=== PATIENT | male | born 1960 | race African-American/Black ===

== ENCOUNTER 2021-01-25 16:07 | Inpatient (IN) | payer OTHER ==
[2021-01-25] MEDS ORDERED: NICOTINE 10 MG CARTRIDGE (INHALER) IH PRN (18:22)
[2021-01-25] MEDS ORDERED: hydrOXYzine PAMOATE 25 MG CAPSULE (FP) PO PRN (18:22)
[2021-01-25] MEDS ORDERED: MENTHOL/PHENOL 1 EACH UD MM PRN (18:22)
[2021-01-25] MEDS ORDERED: ONDANSETRON *ODT* 4 MG TABLET SL PRN (18:22)
[2021-01-25] MEDS ORDERED: MAGNESIUM HYDROX 2400MG/30ML ORAL SUSPENSION 30 ML CUP PO PRN (18:22)
[2021-01-25] MEDS ORDERED: BISMUTH SUBSALICYLATE 524 MG/30 ML PO PRN (18:22)
[2021-01-25] MEDS ORDERED: guaiFENesin 200 MG/10 ML 10 ML UNIT-DOSE CUPS PO PRN (18:22)
[2021-01-25] MEDS ORDERED: ACETAMINOPHEN 325 MG TABLET (FP) PO PRN (18:22)
[2021-01-25] MEDS ORDERED: MAG HYDROX/AL HYDROX/SIMETH 30 ML UNIT-DOSE CUP PO PRN (18:22)
[2021-01-25] MEDS ORDERED: MAGNESIUM CITRATE 300 ML BOTTLE PO PRN (18:22)
[2021-01-25] MEDS ORDERED: diazePAM 5 MG TABLET PO PRN (18:24)
[2021-01-25] MEDS ORDERED: ALBUTEROL SO4 HFA INHALER IH PRN (18:53)
[2021-01-25 23:42] VITALS: BMI 26.9
[2021-01-25] MEDS: diazePAM 5 MG TABLET PO SCH (23:52)
[2021-01-25] MEDS: THIAMINE HCL 100 MG TABLET (FP) PO SCH (23:52)
[2021-01-25] MEDS: MELATONIN 5 MG TABLETS PO SCH (23:52)
[2021-01-26] MEDS ORDERED: diazePAM 5 MG TABLET ONE ×2 (06:26→10:29)
[2021-01-26] MEDS: diazePAM 5 MG TABLET PO SCH ×4 (06:28→22:13)
[2021-01-26] MEDS ORDERED: PNEUMOC 13-VAL CONJ-DIP CRM/PF 0.5 ML DISP.SYRIN IM ONE (10:00)
[2021-01-26] MEDS: PRENATAL VITAMINS W/ FOLIC ACID TABLET (FP) PO SCH (10:31)
[2021-01-26] MEDS ORDERED: ONDANSETRON *ODT* 4 MG TABLET ONE (11:02)
[2021-01-26] MEDS ORDERED: TRIMETHOBENZAMIDE HCL 200MG/2ML INJ IM PRN (11:35)
[2021-01-26] MEDS: NICOTINE 7 MG/24 HOURS TOPICAL PATCH TD SCH (12:44)
[2021-01-26] MEDS: ACETAMINOPHEN 325 MG TABLET (FP) PO PRN (15:40)
[2021-01-26] MEDS: METHOCARBAMOL 500 MG TABLET PO PRN (17:38)
[2021-01-26] MEDS: LISINOPRIL 20 MG TABLET PO SCH (21:14)
[2021-01-26] MEDS: THIAMINE HCL 100 MG TABLET (FP) PO SCH (22:13)
[2021-01-26] MEDS: MELATONIN 5 MG TABLETS PO SCH (22:13)
[2021-01-27] MEDS: diazePAM 5 MG TABLET PO SCH ×3 (06:01→22:22)
[2021-01-27] MEDS ORDERED: FLU VACC QS2021-22(6MOS UP)/PF 60 MCG/0.5 ML SYRINGE IM ONE (10:00)
[2021-01-27] MEDS: NICOTINE 7 MG/24 HOURS TOPICAL PATCH TD SCH (10:02)
[2021-01-27] MEDS: PRENATAL VITAMINS W/ FOLIC ACID TABLET (FP) PO SCH (10:02)
[2021-01-27] MEDS: LISINOPRIL 20 MG TABLET PO SCH (10:02)
[2021-01-27 10:32] LABS: HEMATOCRIT 47.6 % (35.4-49); MCH 30.6 pg (25.7-33.7); MCHC 33.6 g/dl (32.0-35.9); MEAN PLT VOLUME 9.2 fl (7.5-11.1); PLATELET COUNT 179 10^3/uL (134-434); RBC 5.23 M/mm3 (4.00-5.60); WHITE BLOOD COUNT 10.5 K/mm3 (4.0-10.0)
[2021-01-27 10:37] LABS: ALBUMIN 3.6 g/dl (3.4-5.0); BLOOD UREA NITROGEN 9.8 mg/dL (7-18)
[2021-01-27 10:40] LABS: CREATININE 0.9 mg/dL (0.55-1.3)
[2021-01-27 10:41] LABS: BILIRUBIN,TOTAL 1.2 mg/dL (0.2-1)
[2021-01-27 10:42] LABS: TOT PROT 7.6 g/dl (6.4-8.2)
[2021-01-27] MEDS: ACETAMINOPHEN 325 MG TABLET (FP) PO PRN (15:52)
[2021-01-27 15:55] LABS: HIV INTERPRETATION NEGATIVE (NEGATIVE)
[2021-01-27] MEDS: IBUPROFEN 400 MG TABLET (FP) PO PRN (20:23)
[2021-01-27] MEDS: METHOCARBAMOL 500 MG TABLET PO PRN (20:25)
[2021-01-27] MEDS: MELATONIN 5 MG TABLETS PO SCH (22:22)
[2021-01-27] MEDS: THIAMINE HCL 100 MG TABLET (FP) PO SCH (22:22)
[2021-01-28] MEDS: diazePAM 5 MG TABLET PO SCH ×2 (06:27→18:50)
[2021-01-28] MEDS: PRENATAL VITAMINS W/ FOLIC ACID TABLET (FP) PO SCH (10:18)
[2021-01-28] MEDS: NICOTINE 7 MG/24 HOURS TOPICAL PATCH TD SCH (10:18)
[2021-01-28] MEDS: LISINOPRIL 20 MG TABLET PO SCH (10:18)
[2021-01-28] MEDS ORDERED: SODIUM CHLORIDE NASAL SPRAY 44 ML BOTTLE NS PRN (11:03)
[2021-01-28] MEDS ORDERED: PENICILLIN G BENZATHINE 2,400,000 UNIT/4 ML PFS IM ONE (11:18)
[2021-01-28] MEDS: ACETAMINOPHEN 325 MG TABLET (FP) PO PRN (18:50)
[2021-01-28] MEDS ORDERED: LISINOPRIL 5 MG TABLET PO ONE (21:14)
[2021-01-28] MEDS: MELATONIN 5 MG TABLETS PO SCH (23:06)
[2021-01-28] MEDS: THIAMINE HCL 100 MG TABLET (FP) PO SCH (23:06)
[2021-01-29] MEDS ORDERED: diazePAM 5 MG TABLET PO ONE (06:00)
[2021-01-29] MEDS: IBUPROFEN 400 MG TABLET (FP) PO PRN (06:51)
[2021-01-29] MEDS: METHOCARBAMOL 500 MG TABLET PO PRN (06:52)
[2021-01-29 07:21] VITALS: BP 129/87; PULSE 16; TEMP 97
== END 2021-01-29 10:28 | disposition home or self-care (01) | DRG 897 ==
LOC: YASAS 16:07 → Y3N 01-26 10:26
PROVIDERS: ADMIT Allergy & Immunology; ATTEND Allergy & Immunology
PROC: HZ2ZZZZ Detoxification Services for Substance Abuse Treatment (ICD-10-PCS; principal; 2021-01-26)
DX: F10.230 Alcohol dependence with withdrawal, uncomplicated (principal); F14.20 Cocaine dependence, uncomplicated; F17.210 Nicotine dependence, cigarettes, uncomplicated; K29.00 Acute gastritis without bleeding; G89.29 Other chronic pain; M54.2 Cervicalgia; M54.50 Low back pain, unspecified; Z86.19 Personal history of other infectious and parasitic diseases; Z98.890 Other specified postprocedural states
CPT/HCPCS: 36415; 80053; 85027; 86593; 86780; 87389; 90670; 90686; C9803; G0008; G0009; Q0162; U0003; U0005

== ENCOUNTER 2021-10-26 13:48 | Inpatient (IN) | payer OTHER ==
[2021-10-26 14:27] VITALS: BMI 25.7
[2021-10-26] MEDS ORDERED: ACETAMINOPHEN 325 MG TABLET (FP) PO PRN (18:32)
[2021-10-26] MEDS ORDERED: IBUPROFEN 400 MG TABLET (FP) PO PRN (18:32)
[2021-10-26] MEDS ORDERED: MAGNESIUM HYDROX 2400MG/30ML ORAL SUSPENSION 30 ML CUP PO PRN (18:32)
[2021-10-26] MEDS ORDERED: MAGNESIUM CITRATE 300 ML BOTTLE PO PRN (18:32)
[2021-10-26] MEDS ORDERED: BENZOCAINE/MENTHOL (CHLORASEPTIC ) LOZENGE MM PRN (18:32)
[2021-10-26] MEDS ORDERED: IBUPROFEN 600 MG TABLET (FP) PO PRN (18:32)
[2021-10-26] MEDS ORDERED: DICYCLOMINE HCL 10 MG CAPSULE PO PRN (18:32)
[2021-10-26] MEDS ORDERED: BISMUTH SUBSALICYLATE 524 MG/30 ML PO PRN (18:32)
[2021-10-26] MEDS ORDERED: METHOCARBAMOL 500 MG TABLET PO PRN (18:32)
[2021-10-26] MEDS ORDERED: MAG HYDROX/AL HYDROX/SIMETH 30 ML UNIT-DOSE CUP PO PRN (18:32)
[2021-10-26] MEDS ORDERED: ONDANSETRON *ODT* 4 MG TABLET SL PRN (18:32)
[2021-10-26] MEDS ORDERED: NICOTINE 10 MG CARTRIDGE (INHALER) IH PRN (18:32)
[2021-10-26] MEDS ORDERED: LOPERAMIDE HCL 2 MG CAPSULE PO PRN (18:32)
[2021-10-26] MEDS ORDERED: LORazepam 1 MG TABLET PO PRN (18:36)
[2021-10-26] MEDS: MELATONIN 5 MG TABLETS PO SCH (23:04)
[2021-10-26] MEDS: THIAMINE HCL 100 MG TABLET (FP) PO SCH (23:04)
[2021-10-26] MEDS: LORazepam 2 MG TABLET PO SCH (23:04)
[2021-10-27] MEDS: LORazepam 2 MG TABLET PO SCH ×4 (05:13→22:30)
[2021-10-27 10:26] LABS: HEMATOCRIT 42.6 % (35.4-49); HEMOGLOBIN 14.2 GM/dL (11.7-16.9); MCH 29.3 pg (25.7-33.7); MCHC 33.4 g/dl (32.0-35.9); MEAN CELL VOLUME 87.7 fl (80-96); PLATELET COUNT 173 10^3/uL (134-434); RBC 4.86 M/mm3 (4.00-5.60); RDW 13.1 % (11.9-15.9); WHITE BLOOD COUNT 5.4 K/mm3 (4.0-10.0)
[2021-10-27 10:47] LABS: BLOOD UREA NITROGEN 15.4 mg/dL (7-18); CALCIUM 9.6 mg/dL (8.5-10.1)
[2021-10-27 10:48] LABS: ALBUMIN 3.2 g/dl (3.4-5.0)
[2021-10-27 10:51] LABS: CREATININE 0.9 mg/dL (0.55-1.3)
[2021-10-27 10:52] LABS: BILIRUBIN,TOTAL 1.2 mg/dL (0.2-1); TOT PROT 6.6 g/dl (6.4-8.2)
[2021-10-27] MEDS: NICOTINE 21 MG/24 HOURS TOPICAL PATCH TD SCH (10:52)
[2021-10-27] MEDS: PRENATAL VITAMINS W/ FOLIC ACID TABLET (FP) PO SCH (10:53)
[2021-10-27] MEDS: THIAMINE HCL 100 MG TABLET (FP) PO SCH (22:28)
[2021-10-27] MEDS: MELATONIN 5 MG TABLETS PO SCH (22:28)
[2021-10-28] MEDS: LORazepam 1 MG TABLET PO SCH ×4 (07:51→22:20)
[2021-10-28] MEDS ORDERED: PENICILLIN G BENZATHINE 2,400,000 UNIT/4 ML PFS IM ONE (08:49)
[2021-10-28] MEDS: PRENATAL VITAMINS W/ FOLIC ACID TABLET (FP) PO SCH (10:10)
[2021-10-28] MEDS: LISINOPRIL 20 MG TABLET PO SCH (10:10)
[2021-10-28] MEDS: NICOTINE 21 MG/24 HOURS TOPICAL PATCH TD SCH (10:12)
[2021-10-28] MEDS: ACETAMINOPHEN 325 MG TABLET (FP) PO PRN (16:47)
[2021-10-28] MEDS ORDERED: LISINOPRIL 5 MG TABLET PO ONE (18:36)
[2021-10-28] MEDS: THIAMINE HCL 100 MG TABLET (FP) PO SCH (22:20)
[2021-10-28] MEDS: MELATONIN 5 MG TABLETS PO SCH (22:20)
[2021-10-29] MEDS ORDERED: LORazepam 0.5 MG TABLET PO PRN
[2021-10-29] MEDS: LORazepam 0.5 MG TABLET PO SCH ×4 (06:25→22:31)
[2021-10-29] MEDS: NICOTINE 21 MG/24 HOURS TOPICAL PATCH TD SCH (10:19)
[2021-10-29] MEDS: PRENATAL VITAMINS W/ FOLIC ACID TABLET (FP) PO SCH (10:19)
[2021-10-29] MEDS: LISINOPRIL 20 MG TABLET PO SCH (10:19)
[2021-10-29 14:37] LABS: BILIRUBIN,TOTAL 0.6 mg/dL (0.2-1)
[2021-10-29] MEDS: ACETAMINOPHEN 325 MG TABLET (FP) PO PRN (16:36)
[2021-10-29] MEDS ORDERED: cloNIDine HCL 0.1 MG TABLET PO ONE (16:56)
[2021-10-29] MEDS: MELATONIN 5 MG TABLETS PO SCH (22:31)
[2021-10-29] MEDS: THIAMINE HCL 100 MG TABLET (FP) PO SCH (22:31)
[2021-10-30] MEDS ORDERED: LORazepam 0.5 MG TABLET PO ONE (05:00)
[2021-10-30 09:43] VITALS: BP 131/81; PULSE 74; TEMP 97.1
[2021-10-30] MEDS: PRENATAL VITAMINS W/ FOLIC ACID TABLET (FP) PO SCH (10:06)
[2021-10-30] MEDS: NICOTINE 21 MG/24 HOURS TOPICAL PATCH TD SCH (10:06)
[2021-10-30] MEDS: LISINOPRIL 20 MG TABLET PO SCH (10:06)
== END 2021-10-30 12:13 | disposition other institution (70) | DRG 897 ==
LOC: YASAS 13:48 → Y3N 18:25
PROVIDERS: ADMIT Allergy & Immunology; ATTEND Surgery
PROC: HZ2ZZZZ Detoxification Services for Substance Abuse Treatment (ICD-10-PCS; principal; 2021-10-26)
DX: F10.230 Alcohol dependence with withdrawal, uncomplicated (principal); F14.20 Cocaine dependence, uncomplicated; F17.210 Nicotine dependence, cigarettes, uncomplicated; E88.09 Other disorders of plasma-protein metabolism, not elsewhere classified; E80.6 Other disorders of bilirubin metabolism; I10 Essential (primary) hypertension; R74.01 Elevation of levels of liver transaminase levels; R73.9 Hyperglycemia, unspecified; R76.8 Other specified abnormal immunological findings in serum; M19.90 Unspecified osteoarthritis, unspecified site; R26.89 Other abnormalities of gait and mobility; Z99.89 Dependence on other enabling machines and devices; Z86.19 Personal history of other infectious and parasitic diseases; Z98.890 Other specified postprocedural states
CPT/HCPCS: 36415; 80053; 82247; 82947; 83036; 84460; 85027; 86593; 86780; 93005; 93010; C9803-CS; J0735; U0003; U0005